=== PATIENT | female | born 1985 | race Caucasian/White ===

== ENCOUNTER 2016-07-08 13:59 | Emergency (ER) | payer SELFPAY ==
[~2016-07-08] VITALS: Ht 154.9 cm; Wt 54.0 kg
[~2016-07-08 13:59] MED LIST: ONDA1TAB16 PO; TRAM50 PO
[2016-07-08 14:04] VITALS: BP 124/63; PULSE 65; RESP 15; TEMP 98.3; O2SAT 96
[2016-07-08 14:55] LABS: BLOOD, URINE NEG (NEG); GLUCOSE,URINE NEG (NEG); KETONE, URINE TRACE mg/dL (NEG); NITRITE,URINE NEG (NEG)
[2016-07-08 15:02] LABS: METHOD OF COLLECTION CLEAN CATCH
[2016-07-08 15:03] LABS: COMMENT (UR) CULT NOT INDICATED; CULTURE IF INDICATED CULT NOT INDICATED; MUCUS URINE OCC /lpf (OCC); RBC, URINE 0-3 /hpf (0-3); SQUAMOUS EPITHELIAL CELL URINE 0-5 /hpf (0-5); URINE COLOR YELLOW (YELLW/STRAW); WBC, URINE 0-2 /hpf (0-5)
[2016-07-08] MEDS ORDERED: SODIUM CHLOR 0.9% 1000 ML INJ 1,000 ML IV SCH (15:34)
--- NOTE | 2016-07-08 15:38 | PD ---
HPI Chief Complaint: GI Complaint Time Seen by Provider: 15:34 Travel History International Travel<30 days: No Contact w/Intl Traveler<30days: No Traveled to known affect area: No History of Present Illness HPI Patient presents with intermittent nausea and vomiting over last several months. Reports onset yesterday with poor fluid intake. Denies any blood per emesis. She does have some acid brash. Reports feeling full of gas. Reports diffuse abdominal tenderness. Reports loose stools without blood for several days. Denies . No new rashes. PFSH Past Medical History Medical History: Denies Significant Hx Cardiovascular Problems: Yes (pt states she has a low heart rate) Diminished Hearing: No Influenza Vaccination: No ?: Unknown LMP: 2 WEEKS : 4 Para: 3 Past Surgical History Appendectomy: Yes (AGE 13) Social History Alcohol Use: Yes (occ) Tobacco Use: Yes (1 ppd) Substance Use: No Allergies-Medications (Allergen,Severity, Reaction): Coded Allergies: Penicillin (Verified Adverse Reaction, Intermediate, SWELLING, 07/08/16) Reported Meds & Prescriptions Reported Meds & Active Scripts Active Review of Systems General / Constitutional: No: Fever Eyes: No: Visual changes HENT: No: Headaches Cardiovascular: No: Chest Pain or Discomfort Respiratory: No: Shortness of Breath Gastrointestinal: Positive: Nausea, Vomiting, Diarrhea, Abdominal Pain Genitourinary: No: Dysuria Musculoskeletal: No: Pain Skin: No Rash Neurologic: No: Weakness Psychiatric: No: Depression Endocrine: No: Polydipsia Hematologic/Lymphatic: No: Easy Bruising Physical Exam Narrative GENERAL: Well-nourished, well-developed patient. SKIN: Focused skin assessment warm/dry. HEAD: Normocephalic. EYES: No scleral icterus. No injection or drainage. NECK: Supple, trachea midline. No JVD or lymphadenopathy. CARDIOVASCULAR: Regular rate and rhythm without murmurs, gallops, or rubs. RESPIRATORY: Breath sounds equal bilaterally. No accessory muscle use. GASTROINTESTINAL: Abdomen soft, diffusely tender primarily in the left lower quadrant, nondistended. MUSCULOSKELETAL: No cyanosis, or edema. BACK: Nontender without obvious deformity. No CVA tenderness. Data Data Last Documented VS Vital Signs Date Time Temp Pulse Resp B/P Pulse Ox O2 Delivery O2 Flow Rate FiO2 07/08/16 14:04 98.3 65 15 124/63 96 Orders Urinalysis - C+S If Indicated (07/08/16 14:48) Ed Urine Pregnancytest Poc (07/08/16 14:48) Complete Blood Count With Diff (07/08/16 15:30) Comprehensive Metabolic Panel (07/08/16 15:30) Iv Access Insert/Monitor (07/08/16 15:30) Lipase (07/08/16 15:30) Lipase (07/08/16 15:34) Lactic Acid (07/08/16 15:34) Ct Abd/Pel W Iv Contrast(Rout) (07/08/16 15:34) Ecg Monitoring (07/08/16 15:34) Oximetry (07/08/16 15:34) Ondansetron Inj (Zofran Inj) (07/08/16 15:45) Pantoprazole Inj (Protonix Inj) (07/08/16 15:45) Sodium Chlor 0.9% 1000 Ml Inj (Ns 1000 M (07/08/16 15:34) Sodium Chloride 0.9% Flush (Ns Flush) (07/08/16 15:45) Famotidine Inj (Pepcid Inj) (07/08/16 15:45) Dicyclomine Inj (Bentyl Inj) (07/08/16 15:45) Ketorolac Inj (Toradol Inj) (07/08/16 15:45) Labs Laboratory Tests Test 07/08/16 07/08/16 14:50 15:45 Urine Collection Type CLEAN CATCH Urine Color YELLOW Urine Turbidity CLEAR Urine pH 7.0 Urine Specific [place] 1.018 Urine Protein TRACE mg/dL Urine Glucose (UA) NEG mg/dL Urine Ketones TRACE mg/dL Urine Occult Blood NEG Urine Nitrite NEG Urine Bilirubin NEG Urine Leukocyte Esterase NEG Urine RBC 0-3 /hpf Urine WBC 0-2 /hpf Urine Squamous Epithelial 0-5 /hpf Cells Urine Mucus OCC /lpf Microscopic Urinalysis Comment CULT NOT INDICATED Urine Collection Time 14:50 White Blood Count 7.3 TH/MM3 Red Blood Count 4.24 MIL/MM3 Hemoglobin 13.1 GM/DL Hematocrit 39.4 % Mean Corpuscular Volume 93.0 FL Mean Corpuscular Hemoglobin 30.9 PG Mean Corpuscular Hemoglobin 33.2 % Concent Red Cell Distribution Width 13.3 % Platelet Count 137 TH/MM3 Mean Platelet Volume 10.0 FL Neutrophils (%) (Auto) 75.0 % Lymphocytes (%) (Auto) 16.4 % Monocytes (%) (Auto) 5.8 % Eosinophils (%) (Auto) 0.4 % Basophils (%) (Auto) 2.4 % Neutrophils # (Auto) 5.5 TH/MM3 Lymphocytes # (Auto) 1.2 TH/MM3 Monocytes # (Auto) 0.4 TH/MM3 Eosinophils # (Auto) 0.0 TH/MM3 Basophils # (Auto) 0.2 TH/MM3 CBC Comment DIFF FINAL Differential Comment MDM Medical Decision Making Medical Screen Exam Complete: Yes Emergency Medical Condition: Yes Differential Diagnosis Gastroenteritis, diverticulitis, colitis, small bowel obstruction Narrative Course Assessment and plan discussed with patient at bedside. Physician Communication Physician Communication Case discussed and care transferred to Topher Schwartz MD Jul 08, 2016 15:38
[2016-07-08] MEDS ORDERED: DICYCLOMINE HCL 20 MG/2 ML VIAL IM ONE (15:45)
[2016-07-08] MEDS ORDERED: KETOROLAC TROMETHAMINE 30 MG/ML (IVP) VIAL IVP ONE (15:45)
[2016-07-08] MEDS ORDERED: ONDANSETRON HCL 4 MG/2 ML VIAL IVP ONE (15:45)
[2016-07-08] MEDS ORDERED: SODIUM CHLORIDE 0.9% FLUSH 10 ML FLUSH IV FLUSH PRN (15:45)
[2016-07-08] MEDS ORDERED: PANTOPRAZOLE SODIUM 40 MG VIAL IVP ONE (15:45)
[2016-07-08] MEDS ORDERED: FAMOTIDINE 20 MG/2 ML VIAL IV PUSH ONE (15:45)
[2016-07-08 15:55] LABS: AUTOMATED NEUTROPHIL # 5.5 TH/MM3 (1.8-7.7); BASOPHIL # 0.2 TH/MM3 (0-0.2); BASOPHIL % 2.4 % (0.0-2.0); EOSINOPHIL % 0.4 % (0.0-4.0); HEMATOCRIT 39.4 % (35.0-46.0); HEMO FLAGS DIFF FINAL; LYMPH % 16.4 % (9.0-44.0); LYMPHOCYTE # 1.2 TH/MM3 (1.0-4.8); MEAN CORPUSCULAR HEMOGLOBIN 30.9 PG (27.0-34.0); MEAN CORPUSCULAR HGB CONC 33.2 % (32.0-36.0); MONO % 5.8 % (0.0-8.0); PLATELET COUNT 137 TH/MM3 (150-450); RED BLOOD COUNT 4.24 MIL/MM3 (4.00-5.30); RED CELL DISTRIBUTION WIDTH 13.3 % (11.6-17.2); WHITE BLOOD COUNT 7.3 TH/MM3 (4.0-11.0)
[2016-07-08 16:00] VITALS: BP 105/71; PULSE 88; RESP 18; O2SAT 97
[2016-07-08 16:05] LABS: CHLORIDE 110 MEQ/L (98-107); SODIUM (NA) 141 MEQ/L (136-145)
[2016-07-08 16:07] LABS: POTASSIUM 4.8 MEQ/L (3.5-5.1)
[2016-07-08 16:09] LABS: ANION GAP 6 MEQ/L (5-15); BICARBONATE 24.7 MEQ/L (21.0-32.0)
[2016-07-08 16:10] LABS: BLOOD UREA NITROGEN 11 MG/DL (7-18)
[2016-07-08 16:12] LABS: ALT (GPT) 14 U/L (10-53); AST (GOT) 30 U/L (15-37); GLOMERULAR FILTRATION RATE 103 ML/MIN (>89)
[2016-07-08 16:14] LABS: TOTAL BILIRUBIN ADULT 0.5 MG/DL (0.2-1.0)
[2016-07-08 16:15] LABS: ALKALINE PHOSPHATASE 58 U/L (45-117)
[2016-07-08] MEDS ORDERED: IOHEXOL 350 MG/ML 10 ML VIAL (for RAD DIAG) IV ONE (16:24)
--- NOTE | 2016-07-08 16:32 | PD ---
Data Data Last Documented VS Vital Signs Date Time Temp Pulse Resp B/P Pulse Ox O2 Delivery O2 Flow Rate FiO2 07/08/16 16:35 18 07/08/16 16:00 88 105/71 97 Room Air 07/08/16 14:04 98.3 Orders Urinalysis - C+S If Indicated (07/08/16 14:48) Ed Urine Pregnancytest Poc (07/08/16 14:48) Complete Blood Count With Diff (07/08/16 15:30) Comprehensive Metabolic Panel (07/08/16 15:30) Iv Access Insert/Monitor (07/08/16 15:30) Lipase (07/08/16 15:30) Lipase (07/08/16 15:34) Lactic Acid (07/08/16 15:34) Ct Abd/Pel W Iv Contrast(Rout) (07/08/16 15:34) Ecg Monitoring (07/08/16 15:34) Oximetry (07/08/16 15:34) Ondansetron Inj (Zofran Inj) (07/08/16 15:45) Pantoprazole Inj (Protonix Inj) (07/08/16 15:45) Sodium Chlor 0.9% 1000 Ml Inj (Ns 1000 M (07/08/16 15:34) Sodium Chloride 0.9% Flush (Ns Flush) (07/08/16 15:45) Famotidine Inj (Pepcid Inj) (07/08/16 15:45) Dicyclomine Inj (Bentyl Inj) (07/08/16 15:45) Ketorolac Inj (Toradol Inj) (07/08/16 15:45) Iohexol 350 Inj (Omnipaque 350 Inj) (07/08/16 16:24) Labs Laboratory Tests Test 07/08/16 07/08/16 14:50 15:45 Urine Collection Type CLEAN CATCH Urine Color YELLOW Urine Turbidity CLEAR Urine pH 7.0 Urine Specific [place] 1.018 Urine Protein TRACE mg/dL Urine Glucose (UA) NEG mg/dL Urine Ketones TRACE mg/dL Urine Occult Blood NEG Urine Nitrite NEG Urine Bilirubin NEG Urine Leukocyte Esterase NEG Urine RBC 0-3 /hpf Urine WBC 0-2 /hpf Urine Squamous Epithelial 0-5 /hpf Cells Urine Mucus OCC /lpf Microscopic Urinalysis Comment CULT NOT INDICATED Urine Collection Time 14:50 White Blood Count 7.3 TH/MM3 Red Blood Count 4.24 MIL/MM3 Hemoglobin 13.1 GM/DL Hematocrit 39.4 % Mean Corpuscular Volume 93.0 FL Mean Corpuscular Hemoglobin 30.9 PG Mean Corpuscular Hemoglobin 33.2 % Concent Red Cell Distribution Width 13.3 % Platelet Count 137 TH/MM3 Mean Platelet Volume 10.0 FL Neutrophils (%) (Auto) 75.0 % Lymphocytes (%) (Auto) 16.4 % Monocytes (%) (Auto) 5.8 % Eosinophils (%) (Auto) 0.4 % Basophils (%) (Auto) 2.4 % Neutrophils # (Auto) 5.5 TH/MM3 Lymphocytes # (Auto) 1.2 TH/MM3 Monocytes # (Auto) 0.4 TH/MM3 Eosinophils # (Auto) 0.0 TH/MM3 Basophils # (Auto) 0.2 TH/MM3 CBC Comment DIFF FINAL Differential Comment Sodium Level 141 MEQ/L Potassium Level 4.8 MEQ/L Chloride Level 110 MEQ/L Carbon Dioxide Level 24.7 MEQ/L Anion Gap 6 MEQ/L Blood Urea Nitrogen 11 MG/DL Creatinine 0.66 MG/DL Estimat Glomerular Filtration 103 ML/MIN Rate Random Glucose 96 MG/DL Lactic Acid Level 0.8 mmol/L Calcium Level 8.6 MG/DL Total Bilirubin 0.5 MG/DL Aspartate Amino Transf 30 U/L (AST/SGOT) Alanine Aminotransferase 14 U/L (ALT/SGPT) Alkaline Phosphatase 58 U/L Total Protein 7.2 GM/DL Albumin 3.5 GM/DL Lipase 63 U/L [facility] Supervised Visit with DONALD: No Narrative Course So 31 year-old woman who presents to the emergency department complaining of intermittent nausea vomiting for the past several months of abdominal pain. Today with worsening pain, some loose stools, and ongoing vomiting. Initially seen by Dr. Elizabeth, and signed out to me to follow-up on the results of diagnostic testing. Studies show: CBC is unremarkable. Platelet counts a little bit low 137. Not elevated lipase is not elevated Lactate is normal UA is unremarkable. CT abdomen and pelvis:small amount of free fluid in the right dependent pelvis. Mild fatty changes of the liver. Similar to prior CT in 2016. FINAL: 30 year-old woman intermittent nausea and vomiting. States that she has episode several times a month punctuated by symptom-free intervals. The episodes consist of pain and vomiting. She takes NSAIDs almost daily for her bad teeth. She drinks alcohol frequently but not daily. Labs and imaging are unremarkable. At this point we'll, likely etiology seems to be gastritis although her temperature and symptoms are much more periumbilical and epigastric. Nonetheless we'll recommend ranitidine, avoiding NSAIDs, and outpatient follow-up. Diagnosis Primary Impression: Abdominal pain Additional Impression: Nausea & vomiting Additional Instruction: Avoid NSAIDs such as ibuprofen or Aleve. Take ranitidine as prescribed. Use Bentyl as needed for abdominal cramping. Return to the emergency department for any new or worsening symptoms. Med/Other Pt SpecificInfo: Prescription(s) given Scripts Dicyclomine (Bentyl)10 Mg Cap10 Mg PO TID PRN (ABDOMINAL CRAMPING) #15 CAP Ref 0 Prov:Jericho Martinez MD 07/08/16 Ranitidine 150 Mg [id number] Mg PO BID #60 CAP Prov:Jericho Martinez MD 07/08/16 Jericho Martinez MD Jul 08, 2016 16:32
[2016-07-08 16:35] VITALS: RESP 18
--- NOTE | 2016-07-08 16:59 | RADHPO ---
EXAM DATE/TIME: 07/08/2016 16:06 [place] COMPARISON: CT ABDOMEN & PELVIS W CONTRAST, October 09, 2015, 10:41. INDICATIONS : Patient has had nausea and vomiting for past 2 days. IV CONTRAST: 96 cc Omnipaque 350 (iohexol) IV ORAL CONTRAST: No oral contrast ingested. RADIATION DOSE: 6.39 CTDIvol (mGy) MEDICAL HISTORY : Low heart rate SURGICAL HISTORY : Appendectomy. ENCOUNTER: Initial ACUITY: 2 days PAIN SCALE: 7/10 LOCATION: TECHNIQUE: Volumetric scanning of the abdomen and pelvis was performed. Using automated exposure control and ad justment of the mA and/or kV according to patient size, radiation dose was kept as low as reasonably achievable to obtain optimal diagnostic quality images. FINDINGS: LOWER LUNGS: The visualized lower lungs are clear. LIVER: Homogeneous density without lesion. Minimal diffuse fatty change. There is no dilation of the bilia ry tree. No calcified gallstones. SPLEEN: Normal size without lesion. PANCREAS: Within normal limits. KIDNEYS: Normal in size and shape. There is no mass, stone or hydronephrosis. ADRENAL GLANDS: Within normal limits. VASCULAR: There is no aortic aneurysm. BOWEL/MESENTERY: The stomach, small bowel, and colon demonstrate no acute abnormality. There is no free intraperitone al air or fluid. ABDOMINAL WALL: Within normal limits. RETROPERITONEUM: There is no lymphadenopathy. BLADDER: No wall thickening or mass. REPRODUCTIVE: The uterus is anteverted. There is a moderate amount of free fluid in the right dependent pelvis deniz suring 2 cm in thickness. INGUINAL: There is no lymphadenopathy or hernia. MUSCULOSKELETAL: Within normal limits for patient age. CONCLUSION: 1. Small amount of free fluid in the right dependent pelvis. 2. Mild fatty change of the liver, similar to prior CT in 2016 Maximo Mccloud MD on July 08, 2016 at 16:52 Board Certified Radiologist. This report was verified electronically.
[2016-07-08] MEDS ORDERED: DICY10 PO (17:22)
[2016-07-08] MEDS ORDERED: RANI150C PO (17:22)
[2016-07-08 17:43] VITALS: BP 111/70
== END 2016-07-08 17:44 | disposition home or self-care (01) ==
LOC: PHED 13:59
DX: R11.2 Nausea with vomiting, unspecified (principal); R10.9 Unspecified abdominal pain; F17.210 Nicotine dependence, cigarettes, uncomplicated
CPT/HCPCS: 74177; 80053; 81001; 83605; 83690; 84703; 85025; 96361; 96372; 96374; 96375; 99285; C9113; J0500; J1885; J2405; J7030; Q9967

== ENCOUNTER 2016-10-16 12:17 | Emergency (ER) | payer SELFPAY ==
[~2016-10-16] VITALS: Ht 157.5 cm; Wt 47.9 kg
[~2016-10-16 12:17] MED LIST changes: +DICY10 PO; -ONDA1TAB16 PO; +RANI150C PO; -TRAM50 PO
[2016-10-16 13:48] VITALS: BP 141/70; PULSE 48; RESP 16; TEMP 97.4; O2SAT 97
[2016-10-16 16:36] VITALS: BP 139/72; PULSE 46; RESP 20; TEMP 98.1; O2SAT 100
== END 2016-10-16 17:49 | disposition left against medical advice (07) ==
LOC: PHED 12:17
DX: Z53.9 Procedure and treatment not carried out, unspecified reason (principal)
CPT/HCPCS: 99281

== ENCOUNTER 2018-01-15 10:42 | Observation (INO) ==
[2018-01-15] MEDS ORDERED: Sod Chloride 0.9% Inj 1,000 ML IV.SIG ONE (11:15)
--- NOTE | 2018-01-15 11:19 | ED ---
HPI General Chief complaint: Weakness Stated complaint: Poss Sepsis Time Seen by Provider: 01/15/18 11:04 History of Present Illness HPI narrative: 32-year-old female with a history of IV drug use is brought to the emergency department by EMS for evaluation of body aches, nausea, vomiting, diarrhea and abdominal pain. The patient states that she has had body aches and weakness for the past 3 months. Patient states that one month ago she was admitted to [facility] for sepsis and endocarditis, per the patient she was admitted for only 3 days and then discharged without any IV antibiotics. She states she has not used IV drugs in the last month. She states she does have a history of heroin and cocaine abuse. She states that yesterday she started having nausea, vomiting and diarrhea and has not been able food or fluids which is why she called the ambulance today. She is also complaining of abdominal pain. Denies any fever, chills, chest pain, shortness of breath, syncope, swelling of the extremities. She does state she feels lightheaded and weak. No other complaints. Related Data Home Medications Medication Instructions Recorded Confirmed No Known Home Medications 01/15/18 01/15/18 Allergies Allergy/AdvReac Type Severity Reaction Status Date / Time penicillin G AdvReac Intermediate SWELLING Verified 01/15/18 10:47 Review of Systems ROS: all other systems reviewed are negative [facility] Medical History Medical History H/O sepsis (Acute) Surgical History Surgical History Hx of appendectomy (Acute) Social History Social History Substance History: Active Abuse Second Hand Smoke Exposure: Yes Smoking Status: Current every day smoker Tobacco Type: Cigarettes How Often Do You Have a Drink Containing Alcohol: Never Recent Travel in [email or web address] within the Last 8 Weeks: No Recent Out of Country Travel within the Last 8 Weeks: No Substance Abuse Detail Other: Substance Use Type Other:: IV Substance Use Status: Active Route Used Substance Abuse: Intravenously Reason for Use: Get High Immunization History Tetanus Immunization: Unable to Assess Exam Narrative Exam Narrative: GENERAL: Well-nourished and well-developed pleasant patient in no acute distress who is nontoxic appearing. SKIN: Warm and dry. Arms with track garcia noted and scarring from previous injection sites. No erythema or warmth. HEAD: Normocephalic and atraumatic. EYES: No injection, drainage, or hyphema noted. PERRLA. EOMI. ENT: No nasal drainage noted. Oropharynx is clear. NECK: Supple and the trachea is midline. CARDIOVASCULAR: Regular rate and rhythm. RESPIRATORY: Breath sounds are equal bilaterally with no accessory muscle use, wheezing, rhonchi, or crackles. GASTROINTESTINAL: Generalized tenderness to palpation. Abdomen is soft and nondistended. MUSCULOSKELETAL: No obvious deformities, swelling, cyanosis, or ecchymosis is present throughout the upper and lower extremities. Patient has full range of motion without any signs of neurovascular compromise. Distal pulses are 2+ throughout. NEUROLOGICAL: Drowsy but awake and oriented. Normal speech and gait. Cranial nerves are grossly intact. Course Initial Documented Vital Signs Temperature 98.2 F 01/15/18 10:47 Pulse Rate 46 L 01/15/18 10:47 Respiratory Rate 14 01/15/18 10:47 Blood Pressure 142/85 H 01/15/18 10:47 Pulse Oximetry 99 01/15/18 10:47 Last Documented Vital Signs Temperature 98.2 F 01/15/18 10:47 Pulse Rate 42 L 01/15/18 15:19 Respiratory Rate 17 01/15/18 15:19 Blood Pressure 143/81 H 01/15/18 15:19 Pulse Oximetry 96 01/15/18 15:19 Medical Decision Making DONALD Attestation DONALD supervised visit: Yes Attestation: I, Dr. Elias, have reviewed the advance practice practitioner's documentation and am in agreement, met with the patient face to face, made the diagnosis, and the medical decision making was done by me. *My assessment and Findings: Weakness with subjective fevers and chills. Patient was admitted [address] [facility]. She states she was in the hospital for 3 days and they discharged her. She denies any antibiotic use. She does report that she has had endocarditis. She states she last used IV drugs 1 month ago however appears lethargic. [facility] Narrative Medical decision making narrative: 32-year-old female is brought to the emergency department by EMS for evaluation of possible sepsis. Patient is afebrile. She is bradycardic with a heart rate of 46 bpm. Otherwise vital signs are unremarkable. IV access is obtained, labs have been drawn and sent. Patient is placed on cardiac telemetry and pulse oximetry monitoring. EKG shows sinus bradycardia with a ventricular rate of 46 bpm, no acute ST elevations or depressions. Patient administered IV fluids and Zofran. CT of the abdomen and pelvis has been ordered and is pending since patient has abdominal tenderness, vomiting and diarrhea. Will request records from [facility] from patient's recent hospitalization. CBC shows slightly decreased white count of 3.9, otherwise unremarkable. CMP is unremarkable. Lactic acid is within normal limits. Troponin is less than 0.02. Lipase is within normal limits. Urinalysis shows 30 protein, 80 ketones, small occult blood, rare bacteria and few mucus. Chest x-ray is negative. Influenza swab is negative. CT of the abdomen and pelvis with IV contrast is unremarkable. Records were received from [facility] which shows the patient had an admission 10/07/17 through 10/09/17 for sepsis with positive blood cultures showing staph aureus. Per the documentation from those records the patient left AGAINST MEDICAL ADVICE. The records show that the patient had a chest CT suspicious findings of septic emboli and she was undergoing workup for possible endocarditis however this was never diagnosed as the patient left AGAINST MEDICAL ADVICE prior to further workup. Reviewed the blood culture results which show susceptibility to all antibiotics except penicillin. Also reviewed transthoracic echocardiogram which was negative for vegetation however AVERY was not performed prior to patient leaving. Patient administered vancomycin 1 g IV. Patient reassessed and she is still quite lethargic and unable to ambulate safely on her own. She is high risk for bacteremia and endocarditis. I discussed the case with my attending physician Dr. Elias and we agree the patient should be observed here in the hospital. I spoke with Dr. Dominguez [facility] who accepts patient under observation. Medical Screen Exam Complete: Yes Emergency Medical Condition: Yes Differential Diagnosis Differential Diagnosis: Sepsis versus endocarditis versus dehydration versus electrolyte abnormality Lab Data Result diagrams: 01/15/18 11:36 01/15/18 11:36 POC Results POC Urine Results Negative Lab Results 01/15/18 01/15/18 01/15/18 Range/Units 11:36 11:36 11:36 WBC 3.9 L (4.0-11.0) th/mm3 RBC 4.57 (4.00-5.30) mil/mm3 Hgb 13.4 (11.6-15.3) gm/dL Hct 37.9 (35.0-46.0) % MCV 82.9 (80.0-100.0) fL MCH 29.3 (27.0-34.0) pg MCHC 35.3 (32.0-36.0) % RDW 16.1 (11.6-17.2) % Plt Count 250 (150-450) th/mm3 MPV 9.1 (7.0-11.0) fL Neut % (Auto) 65.5 (16.0-70.0) % Lymph % (Auto) 27.4 (9.0-44.0) % [place] % (Auto) 5.5 (0.0-8.0) % Eos % (Auto) 0.3 (0.0-4.0) % Baso % (Auto) 1.3 (0.0-2.0) % Neut # (Auto) 2.6 (1.8-7.7) th/mm3 Lymph # (Auto) 1.1 (1.0-4.8) th/mm3 [place] # (Auto) 0.2 (0.0-0.9) th/mm3 Eos # (Auto) 0.0 (0.0-0.4) th/mm3 Baso # (Auto) 0.0 (0.0-0.2) th/mm3 WBC Differential . Differential Comment Auto diff final Sodium 136 (136-145) meq/L Potassium 3.7 (3.5-5.1) meq/L Chloride 101 (98-107) meq/L Carbon Dioxide 23.5 (21.0-32.0) meq/L Anion Gap 12 (5-15) meq/L BUN 16 (7-18) mg/dL Creatinine 0.87 (0.50-1.00) mg/dL Estimated GFR 75 L (>89) mL/min Random Glucose 76 (74-106) mg/dL Lactic Acid 1.0 (0.4-2.0) mmol/L Calcium 9.1 (8.5-10.1) mg/dL Magnesium 2.2 (1.5-2.5) mg/dL Total Bilirubin 0.6 (0.2-1.0) mg/dL AST 17 (15-37) U/L ALT 16 (10-53) U/L Alkaline Phosphatase 100 (45-117) U/L Total Creatine Kinase (26-192) U/L Troponin I Less than 0.02 L (0.02-0.05) ng/mL Total Protein 8.9 H (6.4-8.2) g/dL Albumin 3.7 (3.4-5.0) g/dL Lipase (73-393) U/L Urine Color (Yellw/Straw) Urine Clarity (Clear) Urine pH (5.0-8.5) Ur Specific [place] (1.002-1.035) Urine Protein (Neg-Trace) mg/dL Urine Glucose (UA) (Negative) mg/dL Urine Ketones (Negative) mg/dL Urine Occult Blood (Negative) Urine Nitrate (Negative) Urine Bilirubin (Negative) Urine Urobilinogen (Less than 2) mg/dL Ur Leukocyte Esterase (Negative) Urine RBC (0-3) /hpf Urine WBC (0-5) /hpf Ur Squamous Epith Cells (0-5) /hpf Urine Bacteria (None) /hpf Urine Mucus (Occasional) /lpf Micro UA Comment Ur Microscopic Review Urine Culture Comments 01/15/18 01/15/18 01/15/18 Range/Units 11:36 11:36 11:50 WBC (4.0-11.0) th/mm3 RBC (4.00-5.30) mil/mm3 Hgb (11.6-15.3) gm/dL Hct (35.0-46.0) % MCV (80.0-100.0) fL MCH (27.0-34.0) pg MCHC (32.0-36.0) % RDW (11.6-17.2) % Plt Count (150-450) th/mm3 MPV (7.0-11.0) fL Neut % (Auto) (16.0-70.0) % Lymph % (Auto) (9.0-44.0) % [place] % (Auto) (0.0-8.0) % Eos % (Auto) (0.0-4.0) % Baso % (Auto) (0.0-2.0) % Neut # (Auto) (1.8-7.7) th/mm3 Lymph # (Auto) (1.0-4.8) th/mm3 [place] # (Auto) (0.0-0.9) th/mm3 Eos # (Auto) (0.0-0.4) th/mm3 Baso # (Auto) (0.0-0.2) th/mm3 WBC Differential Differential Comment Sodium (136-145) meq/L Potassium (3.5-5.1) meq/L Chloride (98-107) meq/L Carbon Dioxide (21.0-32.0) meq/L Anion Gap (5-15) meq/L BUN (7-18) mg/dL Creatinine (0.50-1.00) mg/dL Estimated GFR (>89) mL/min Random Glucose (74-106) mg/dL Lactic Acid (0.4-2.0) mmol/L Calcium (8.5-10.1) mg/dL Magnesium (1.5-2.5) mg/dL Total Bilirubin (0.2-1.0) mg/dL AST (15-37) U/L ALT (10-53) U/L Alkaline Phosphatase (45-117) U/L Total Creatine Kinase 35 (26-192) U/L Troponin I (0.02-0.05) ng/mL Total Protein (6.4-8.2) g/dL Albumin (3.4-5.0) g/dL Lipase 53 L (73-393) U/L Urine Color Yellow (Yellw/Straw) Urine Clarity Hazy H (Clear) Urine pH 5.0 (5.0-8.5) Ur Specific [place] 1.021 (1.002-1.035) Urine Protein 30 H (Neg-Trace) mg/dL Urine Glucose (UA) Negative (Negative) mg/dL Urine Ketones 80 or greater H (Negative) mg/dL Urine Occult Blood Small H (Negative) Urine Nitrate Negative (Negative) Urine Bilirubin Negative (Negative) Urine Urobilinogen Less than 2 (Less than 2) mg/dL Ur Leukocyte Esterase Negative (Negative) Urine RBC 2 (0-3) /hpf Urine WBC 2 (0-5) /hpf Ur Squamous Epith Cells <1 (0-5) /hpf Urine Bacteria Rare H (None) /hpf Urine Mucus Few H (Occasional) /lpf Micro UA Comment Cath-culture ind Ur Microscopic Review Not Reportable Urine Culture Comments Cath-cult indicated Imaging Data Radiologist's impression: Abdomen/Pelvis CT 01/15/18 11:15 CONCLUSION: 1. Grossly unremarkable bowel gas pattern. The study was performed without oral contrast limiting the sensitivity. 2. The gallbladder is decompressed but otherwise unremarkable. Chest X-Ray 01/15/18 11:15 CONCLUSION: No acute cardiopulmonary disease. There is no evidence of pneumonia. Discharge Plan Discharge Order Discharge Orders: ED Use Only Admit Order (Routine); Ordered 01/15/18 Ordered By: Gaby Hollis Physicians Team ED Provider: Rom Elias ED Midlevel Provider: Gaby Hollis Primary Care Provider: Primary Care Trish Rico Rxs /Orders / Referrals /Forms Prescriptions: No Action No Known Home Medications RF: 0 Discharge Interventions Interventions: Vital Signs Last Done: 01/15/18 15:19 Status ED Status: With Doctor
[2018-01-15 11:58] LABS: Baso % (Auto) 1.3 % (0.0-2.0); Eos % (Auto) 0.3 % (0.0-4.0); Hematocrit 37.9 % (35.0-46.0); Hemoglobin 13.4 gm/dL (11.6-15.3); Lymph # (Auto) 1.1 th/mm3 (1.0-4.8); Lymph % (Auto) 27.4 % (9.0-44.0); Mean Corpuscular HGB Conc 35.3 % (32.0-36.0); Mean Corpuscular Hemoglobin 29.3 pg (27.0-34.0); Mean Corpuscular Volume 82.9 fL (80.0-100.0); Mean Platelet Volume 9.1 fL (7.0-11.0); Mono # (Auto) 0.2 th/mm3 (0.0-0.9); Mono % (Auto) 5.5 % (0.0-8.0); Neut # (Auto) 2.6 th/mm3 (1.8-7.7); Neut % (Auto) 65.5 % (16.0-70.0); Platelet Count 250 th/mm3 (150-450); Red Blood Count 4.57 mil/mm3 (4.00-5.30); Red Cell Distribution Width 16.1 % (11.6-17.2); White Blood Count 3.9 th/mm3 (4.0-11.0)
[2018-01-15 12:23] LABS: Alanine Aminotransferase 16 U/L (10-53); Albumin 3.7 g/dL (3.4-5.0); Anion Gap 12 meq/L (5-15); Aspartate Aminotransferase 17 U/L (15-37); Blood Urea Nitrogen 16 mg/dL (7-18); Calcium 9.1 mg/dL (8.5-10.1); Carbon Dioxide 23.5 meq/L (21.0-32.0); Chloride 101 meq/L (98-107); Glomerular Filtration Rate 75 mL/min (>89); Glucose,Random 76 mg/dL (74-106); Magnesium 2.2 mg/dL (1.5-2.5); Potassium 3.7 meq/L (3.5-5.1); Sodium 136 meq/L (136-145)
[2018-01-15 12:24] LABS: Bacteria,Urine Rare /hpf; Bilirubin,Urine Negative (Negative); Clarity,Urine Hazy (Clear); Color,Urine Yellow (Yellw/Straw); Glucose,Urine (UA) Negative (Negative); Leukocyte Esterase,Urine Negative (Negative); Mucus,Urine Few /lpf (Occasional); Nitrite,Urine Negative (Negative); Specific Gravity,Urine 1.021 (1.002-1.035); Squamous Epithelial Cell,Urine <1 /hpf (0-5)
[2018-01-15 12:26] LABS: Alkaline Phosphatase 100 U/L (45-117); Total Protein 8.9 g/dL (6.4-8.2)
--- NOTE | 2018-01-15 13:07 | XR ---
EXAM DATE: 01/15/2018 12:51 PM EST AGE/SEX: 32 years / Female INDICATIONS: Cough. CLINICAL DATA: This is the patient's initial encounter. Patient reports that signs and symptoms have been present for 1 day and indicates a pain score of Nonresponsive. MEDICAL/SURGICAL HISTORY: . low heart rate. Appendectomy. COMPARISON: No prior exams available for comparison. FINDINGS: A single AP view of the chest demonstrates the lungs to be symmetrically aerated without evidence of mass, infiltrate or effusion. The cardiomediastinal contours are unremarkable. Osseous structures a re intact. CONCLUSION: No acute cardiopulmonary disease. There is no evidence of pneumonia. Electronically signed by: Anil Arriaga MD 01/15/2018 1:06 PM EST
[2018-01-15] MEDS ORDERED: Vancomycin Inj 1,000 MG in Sodium Chlor 0.9% Inj 250 ML IV.SIG ONE (13:33)
--- NOTE | 2018-01-15 14:20 | CT ---
EXAM DATE: 01/15/2018 1:58 PM EST AGE/SEX: 32 years / Female INDICATIONS: Diffuse abdominal pain. Nausea, vomiting and diarrhea. CLINICAL DATA: This is the patient's initial encounter. Patient reports that signs and symptoms have been present for 1 month and indicates a pain score of 10/10. MEDICAL/SURGICAL HISTORY: . Sepsis. Appendectomy. ORAL CONTRAST: No oral contrast ingested. RADIATION DOSE: 6.64 CTDI (mGy) COMPARISON: [facility], CT ABDOMEN & PELVIS W CONTRAST, 07/08/2016. . TECHNIQUE: Multiple contiguous axial images were obtained through the abdomen and pelvis following b olus infusion of 95 ml Omnipaque 350 (iohexol) nonionic water-soluble contrast as a single exam dos e. No oral contrast ingested. Using automated exposure control and adjustment of the mA and/or kV ac cording to patient size, radiation dose was kept as low as reasonably achievable to obtain optimal di agnostic quality images. DICOM format image data is available electronically for review and comparis on. FINDINGS: Lower Lungs: The visualized lower lungs are clear. Liver: The liver has a homogeneous density without space-occupying lesion. There is no dilation of th e biliary tree. The gallbladder is decompressed but otherwise unremarkable. Spleen: Homogeneous density without enlargement. Pancreas: Unremarkable without mass or calcification. Kidneys: Normal in size and shape. No evidence of mass or hydronephrosis. Adrenal Glands: Unremarkable. Aorta: The aorta and proximal iliac vessels are grossly unremarkable without aneurysmal dilation. Bowel/Mesentery: No oral contrast was given to the exam. The bowel loops are grossly unremarkable. Th e cecum and sigmoid colon have a normal configuration. Abdominal Wall: Intact. Retroperitoneum: No evidence of adenopathy in the retrocrural, para-aortic, or deep pelvic regions. Bladder: Contours are smooth. Reproductive Organs: No abnormal masses or calcifications seen. Inguinal: The inguinal region is unremarkable without evidence of adenopathy. Bony Structures: Unremarkable. CONCLUSION: 1. Grossly unremarkable bowel gas pattern. The study was performed without oral contrast limiting th e sensitivity. 2. The gallbladder is decompressed but otherwise unremarkable. Electronically signed by: Anil Arriaga MD 01/15/2018 2:18 PM EST
[2018-01-15] MEDS ORDERED: Acetaminophen 325 MG Tablet PO PRN (15:45)
[2018-01-15] MEDS ORDERED: Naloxone Inj 0.4 MG/ML Vial IV.PUSH PRN (15:45)
--- NOTE | 2018-01-15 16:00 | P.HP ---
History of Present Illness Primary Care Physician: No Primary Care Physician Chief Complaint: General weakness, intractable nausea and vomiting History of Present Illness: [id number] female with a past medical history of IVDU and states her last use of Heroine was few days ago, presents to the ED via EMS for evaluation of global weakness, intractable nausea and vomiting as well as diarrhea x 1-2 days duration. In the ED the patient was found to be bradycardic. Patient was admitted to [facility] on 10/07/17 through 10/09/17 for sepsis with positive blood cultures showing staph aureus, however the patient left AGAINST MEDICAL ADVICE before completing therapy. A transthoracic echocardiogram then was negative for vegetation however AVERY was not performed prior to the patient leaving AMA Review of Systems All other systems reviewed negative except as stated in HPI [facility] - History History Provided By: Patient - Medical History Medical History: Medical History (Last Updated 01/15/18 @ 10:56 by Merle Herr RN) H/O sepsis - Surgical History Surgical History: Surgical History (Last Updated 01/15/18 @ 10:56 by Merle Herr RN) Hx of appendectomy - Family History Family History: Family History (Last Updated 01/15/18 @ 16:10 by Simon Dominguez MD) Other Family history non-contributory - Tobacco History Second Hand Smoke Exposure: Yes Tobacco Use In Past 30 Days: Yes Smoking Status: Current every day smoker Tobacco Type: Cigarettes - Alcohol History How Often Do You Have a Drink Containing Alcohol: Never - Substance Use History Substance History: Active Abuse - Substance Use Type Other Type: IV Status: Active Route Used: Intravenously Reason for Use: Get High - Travel History Recent Travel in the [place] Within the Last 8 Weeks: No Recent Travel Out of the Country Within the Last 8 Weeks: No - Immunization History Tetanus Immunization: Unable to Assess Medications and Allergies Active Medications: Active Medications Acetaminophen (Tylenol) 650 mg PO Q4H PRN PRN Reason: Temp > 100.4 Al Hydroxide/Mg Hydroxide (Milk Of Magnesia Liq) 30 ml PO Q12H PRN PRN Reason: Mild Constipation Enoxaparin Sodium (Lovenox Inj) 40 mg SQ Q24H IRINA Sodium Chloride (Ns Inj) 1,000 mls @ 100 mls/hr IV.CONT .Q10H IRINA Ibuprofen (Motrin) 400 mg PO Q6HR PRN PRN Reason: PAIN SCALE 1 TO 2 Naloxone HCl (Narcan Inj) 0.4 mg IV.PUSH UNSCH PRN PRN Reason: SEE LABEL COMMENTS Ondansetron HCl (Zofran Inj) 4 mg IV.PUSH Q6H PRN PRN Reason: NAUSEA OR VOMITING Sodium Chloride (Ns Flush) 2 ml IV.FLUSH BID IRINA Sodium Chloride (Ns Flush) 2 ml IV.FLUSH PRN PRN PRN Reason: FLUSH AFTER USING IV ACCESS Allergies Allergy/AdvReac Type Severity Reaction Status Date / Time penicillin G AdvReac Intermediate SWELLING Verified 01/15/18 10:47 Home Medications Medication Instructions Recorded Confirmed Type No Known Home Medications 01/15/18 01/15/18 History Exam Vital signs: Vital Signs 01/15/18 10:47 01/15/18 11:15 01/15/18 14:08 Temperature 98.2 F Pulse Rate 46 L 45 L Respiratory Rate 14 17 Blood Pressure 142/85 H 144/77 H Pulse Oximetry 99 95 100 01/15/18 15:19 Temperature Pulse Rate 42 L Respiratory Rate 17 Blood Pressure 143/81 H Pulse Oximetry 96 Intake & Output 01/14/18 01/15/18 01/15/18 18:59 06:59 18:59 Intake Total 1000 / 1000 Balance 1000 / 1000 Weight 48.988 kg Intake: IV 1000 / 1000 NS Inj 1,000 ML @ Wide Open IV. 1000 / 1000 SIG BOLUS ONE Rx#:[id number] Narrative: GENERAL: NAD SKIN: Warm and dry.Arms with track garcia noted and scarring from previous injection sites HEAD: Atraumatic. Normocephalic. EYES: Pupils equal and round. No scleral icterus. No injection or drainage. ENT: No nasal bleeding or discharge. Mucous membranes pink and moist. NECK: Trachea midline. No JVD. CARDIOVASCULAR: Regular rate and rhythm. RESPIRATORY: No accessory muscle use. Clear to auscultation. Breath sounds equal bilaterally. GASTROINTESTINAL: Abdomen soft, non-tender, nondistended. Hepatic and splenic margins not palpable. MUSCULOSKELETAL: Extremities without clubbing, cyanosis, or edema. No obvious deformities. NEUROLOGICAL: Awake and alert. No obvious cranial nerve deficits. Motor grossly within normal limits. Five out of 5 muscle strength in the arms and legs. Normal speech. PSYCHIATRIC: Appropriate mood and affect; insight and judgment normal. Results - Labs CBC & Chem 7: 01/15/18 11:36 01/15/18 11:36 Labs: Laboratory Results - last 24 hr 01/15/18 01/15/18 01/15/18 11:36 11:36 11:36 WBC 3.9 L RBC 4.57 Hgb 13.4 Hct 37.9 MCV 82.9 MCH 29.3 MCHC 35.3 RDW 16.1 Plt Count 250 MPV 9.1 Neut % (Auto) 65.5 Lymph % (Auto) 27.4 [place] % (Auto) 5.5 Eos % (Auto) 0.3 Baso % (Auto) 1.3 Neut # (Auto) 2.6 Lymph # (Auto) 1.1 [place] # (Auto) 0.2 Eos # (Auto) 0.0 Baso # (Auto) 0.0 WBC Differential . Differential Comment Auto diff final Sodium 136 Potassium 3.7 Chloride 101 Carbon Dioxide 23.5 Anion Gap 12 BUN 16 Creatinine 0.87 Estimated GFR 75 L Random Glucose 76 Lactic Acid 1.0 Calcium 9.1 Magnesium 2.2 Total Bilirubin 0.6 AST 17 ALT 16 Alkaline Phosphatase 100 Total Creatine Kinase Troponin I Less than 0.02 L Total Protein 8.9 H Albumin 3.7 Lipase Urine Color Urine Clarity Urine pH Ur Specific [place] Urine Protein Urine Glucose (UA) Urine Ketones Urine Occult Blood Urine Nitrate Urine Bilirubin Urine Urobilinogen Ur Leukocyte Esterase Urine RBC Urine WBC Ur Squamous Epith Cells Urine Bacteria Urine Mucus Micro UA Comment Ur Microscopic Review Urine Culture Comments 01/15/18 01/15/18 01/15/18 11:36 11:36 11:50 WBC RBC Hgb Hct MCV MCH MCHC RDW Plt Count MPV Neut % (Auto) Lymph % (Auto) [place] % (Auto) Eos % (Auto) Baso % (Auto) Neut # (Auto) Lymph # (Auto) [place] # (Auto) Eos # (Auto) Baso # (Auto) WBC Differential Differential Comment Sodium Potassium Chloride Carbon Dioxide Anion Gap BUN Creatinine Estimated GFR Random Glucose Lactic Acid Calcium Magnesium Total Bilirubin AST ALT Alkaline Phosphatase Total Creatine Kinase 35 Troponin I Total Protein Albumin Lipase 53 L Urine Color Yellow Urine Clarity Hazy H Urine pH 5.0 Ur Specific [place] 1.021 Urine Protein 30 H Urine Glucose (UA) Negative Urine Ketones 80 or greater H Urine Occult Blood Small H Urine Nitrate Negative Urine Bilirubin Negative Urine Urobilinogen Less than 2 Ur Leukocyte Esterase Negative Urine RBC 2 Urine WBC 2 Ur Squamous Epith Cells <1 Urine Bacteria Rare H Urine Mucus Few H Micro UA Comment Cath-culture ind Ur Microscopic Review Not Reportable Urine Culture Comments Cath-cult indicated - Imaging Impressions Abdomen/Pelvis CT 01/15/18 11:15 CONCLUSION: 1. Grossly unremarkable bowel gas pattern. The study was performed without oral contrast limiting the sensitivity. 2. The gallbladder is decompressed but otherwise unremarkable. Chest X-Ray 01/15/18 11:15 CONCLUSION: No acute cardiopulmonary disease. There is no evidence of pneumonia. Caprini VTE Risk Assessment Caprini VTE Risk Assessment: No/Low Risk (score <= 1) Caprini Risk Assessment Model: Point Value = 1 Point Value = 2 Point Value = 3 Point Value = 5 Age 41-60 Minor surgery BMI > 25 kg/m2 Swollen legs Varicose veins or History of unexplained or recurrent spontaneous Oral contraceptives or hormone replacement Sepsis (< 1 month) Serious lung disease, including pneumonia (< 1 month) Abnormal pulmonary function Acute myocardial infarction Congestive heart failure (< 1 month) History of inflammatory bowel disease Medical patient at bed rest Age 61-74 Arthroscopic surgery Major open surgery (> 45 min) Laparoscopic surgery (> 45 min) Malignancy Confined to bed (> 72 hours) Immobilizing plaster cast Central venous access Age >= 75 History of VTE Family history of VTE Factor V Leiden Prothrombin [id number] Lupus anticoagulant Anticardiolipin antibodies Elevated serum homocysteine Heparin-induced thrombocytopenia Other congenital or acquired thrombophilia Stroke (< 1 month) Elective arthroplasty Hip, pelvis, or leg fracture Acute spinal cord injury (< 1 month) Prophylaxis Regimen: Total Risk Factor Score Risk Level Prophylaxis Regimen 0-1 Low Early ambulation 2 Moderate Order ONE of the following: *Sequential Compression Device (SCD) *Heparin 5000 units SQ BID 3-4 Higher Order ONE of the following medications: *Heparin 5000 units SQ TID *Enoxaparin/Lovenox 40 mg SQ daily (WT < 150 kg, CrCl > 30 mL/min) *Enoxaparin/Lovenox 30 mg SQ daily (WT < 150 kg, CrCl > 10-29 mL/min) *Enoxaparin/Lovenox 30 mg SQ BID (WT < 150 kg, CrCl > 30 mL/min) AND/OR *Sequential Compression Device (SCD) 5 or more Highest Order ONE of the following medications: *Heparin 5000 units SQ TID (Preferred with Epidurals) *Enoxaparin/Lovenox 40 mg SQ daily (WT < 150 kg, CrCl > 30 mL/min) *Enoxaparin/Lovenox 30 mg SQ daily (WT < 150 kg, CrCl > 10-29 mL/min) *Enoxaparin/Lovenox 30 mg SQ BID (WT < 150 kg, CrCl > 30 mL/min) AND *Sequential Compression Device (SCD) Assessment and Plan - Plan 32 years female with Global Weakness Multifactorial; patient with a h/o IVDU PT consult to treat and eval Abdominal pain; intractable N/V Abdominal/Pelvic CT noted and review by me without any abnormal findings patient with a h/o IVDU; questionable withdrawal? UDS pending Conservative treatment Bradycardia patient with a h/o IVDU; will check UDS Consider Limited 2D echo in the abscess of febrile episode, Leukocytosis History of Hep C Chronic, outpatient management IVDU -Continue use of Polysubstance abuse -Extensively counselled against -Will check UDS -NO current febrile episode , but will continue to monitor Blood culture. -Patient was admitted to [facility] on 10/07/17 through 10/09/17 for sepsis with positive blood cultures showing staph aureus, however the patient left AGAINST MEDICAL ADVICE before completing therapy. A transthoracic echocardiogram then was negative for vegetation however AVERY was not performed prior to the patient leaving [place]. DVT prophylaxis: Lovenox
[2018-01-15] MEDS: Sod Chloride 0.9% Inj 1,000 ML IV.CONT SCH (16:51)
[2018-01-15 19:41] LABS: Amphetamine Screen,Urine Neg (Neg); Barbiturate Screen,Urine Neg (Neg); Cannabinoid Screen,Urine Neg (Neg); Cocaine Screen,Urine Pos (Neg)
[2018-01-15 19:45] LABS: Opiate Screen,Urine Neg (Neg)
[2018-01-16] MEDS: Ibuprofen 400 MG Tablet PO PRN ×3 (01:06→20:30)
[2018-01-16] MEDS: Sod Chloride 0.9% Inj 1,000 ML IV.CONT SCH ×3 (03:17→23:26)
[2018-01-16 08:00] LABS: Baso % (Auto) 0.9 % (0.0-2.0); Eos % (Auto) 0.2 % (0.0-4.0); Hematocrit 34.7 % (35.0-46.0); Hemoglobin 12.3 gm/dL (11.6-15.3); Lymph # (Auto) 1.7 th/mm3 (1.0-4.8); Mean Corpuscular HGB Conc 35.3 % (32.0-36.0); Mean Corpuscular Hemoglobin 28.8 pg (27.0-34.0); Mean Corpuscular Volume 81.5 fL (80.0-100.0); Mean Platelet Volume 9.2 fL (7.0-11.0); Mono # (Auto) 0.4 th/mm3 (0.0-0.9); Mono % (Auto) 7.2 % (0.0-8.0); Neut # (Auto) 3.2 th/mm3 (1.8-7.7); Neut % (Auto) 59.7 % (16.0-70.0); Platelet Count 252 th/mm3 (150-450); Red Blood Count 4.26 mil/mm3 (4.00-5.30); Red Cell Distribution Width 16.1 % (11.6-17.2); White Blood Count 5.4 th/mm3 (4.0-11.0)
[2018-01-16 08:25] LABS: Alanine Aminotransferase 12 U/L (10-53); Albumin 3.5 g/dL (3.4-5.0); Anion Gap 9 meq/L (5-15); Aspartate Aminotransferase 10 U/L (15-37); Blood Urea Nitrogen 17 mg/dL (7-18); Calcium 8.8 mg/dL (8.5-10.1); Carbon Dioxide 25.6 meq/L (21.0-32.0); Chloride 104 meq/L (98-107); Glomerular Filtration Rate Greater Than 89 mL/min (>89); Glucose,Random 101 mg/dL (74-106); Potassium 3.3 meq/L (3.5-5.1); Sodium 139 meq/L (136-145)
[2018-01-16 08:27] LABS: Alkaline Phosphatase 89 U/L (45-117); Total Protein 8.1 g/dL (6.4-8.2)
[2018-01-16] MEDS: Enoxaparin Inj 40 MG/0.4 ML Syringe SQ SCH (08:39)
[2018-01-16] MEDS ORDERED: Enoxaparin Inj 40 MG/0.4 ML Syringe SQ SCH (09:00)
--- NOTE | 2018-01-16 11:41 | P.PN ---
Subjective Interval history: Follow-up for weakness, nausea/vomiting, diarrhea, IVDU with heroin. The patient reports still feeling very ill and weak with continued nausea/vomiting and diarrhea. She reports subjective fevers and chills. Denies any chest pain , shortness of breath, or cough. Denies any specific abdominal pains, just feels sore from vomiting. Denies any other medical complaints at this time. Physical Exam Vital signs: Vital Signs 01/15/18 14:08 01/15/18 15:19 01/15/18 16:50 Temperature Pulse Rate 45 L 42 L 45 L Respiratory Rate 17 17 18 Blood Pressure 144/77 H 143/81 H 152/100 H Pulse Oximetry 100 96 100 01/15/18 20:00 01/16/18 00:00 01/16/18 04:00 Temperature 98.6 F 98.3 F 98.3 F Pulse Rate 44 L 45 L 40 L Respiratory Rate 14 17 14 Blood Pressure 145/70 H 143/78 H 135/72 Pulse Oximetry 100 98 98 01/16/18 08:00 Temperature 98.2 F Pulse Rate 45 L Respiratory Rate 16 Blood Pressure 143/79 H Pulse Oximetry 98 Intake & Output 01/15/18 01/16/18 01/16/18 18:59 06:59 18:59 Intake Total 1490 / 1490 1000 / 1000 Balance 1490 / 1490 1000 / 1000 Weight 57.153 kg Intake: IV 1250 / 1250 1000 / 1000 NS Inj 1,000 ML @ 100 mls/hr IV 1000 / 1000 .CONT .Q10H IRINA Rx#:[id number] NS Inj 1,000 ML @ Wide Open IV. 1000 / 1000 SIG BOLUS ONE Rx#:[id number] Vancomycin Inj 1,000 MG In NS 250 / 250 Inj 250 ML @ 250 mls/hr IV.SIG ONCE ONE Rx#:[id number] Oral 240 / 240 Other: Weight On Admission 57 kg Narrative: GENERAL: Well-nourished, well-developed thin female patient in NAD. Drowsy, but easily awakens to voice. SKIN: Warm and dry. No rash. Puncture sites on extremities consistent with injection/track garcia. Face with scabs. HEENT: Normocephalic. Atraumatic. Pupils equal and round. Mucous membranes pink and moist. CARDIOVASCULAR: Regular rate and rhythm. No murmur appreciated. RESPIRATORY: No accessory muscle use. Clear to auscultation. Breath sounds equal bilaterally. GASTROINTESTINAL: Abdomen soft, non-tender, nondistended. Normoactive bowel sounds x4. MUSCULOSKELETAL: No obvious deformities. Extremities without clubbing, cyanosis , or edema. NEUROLOGICAL: Awake and alert. No obvious cranial nerve deficits. Moving all extremities spontaneously. Normal speech. PSYCHIATRIC: Appropriate mood and affect; insight and judgment normal. Results - Labs CBC & Chem 7: 01/16/18 07:25 01/16/18 07:25 Laboratory Results - last 24 hr 01/15/18 01/15/18 01/15/18 11:36 11:36 11:36 WBC 3.9 L RBC 4.57 Hgb 13.4 Hct 37.9 MCV 82.9 MCH 29.3 MCHC 35.3 RDW 16.1 Plt Count 250 MPV 9.1 Neut % (Auto) 65.5 Lymph % (Auto) 27.4 [place] % (Auto) 5.5 Eos % (Auto) 0.3 Baso % (Auto) 1.3 Neut # (Auto) 2.6 Lymph # (Auto) 1.1 [place] # (Auto) 0.2 Eos # (Auto) 0.0 Baso # (Auto) 0.0 WBC Differential . Differential Comment Auto diff final Sodium 136 Potassium 3.7 Chloride 101 Carbon Dioxide 23.5 Anion Gap 12 BUN 16 Creatinine 0.87 Estimated GFR 75 L Random Glucose 76 Lactic Acid 1.0 Calcium 9.1 Magnesium 2.2 Total Bilirubin 0.6 AST 17 ALT 16 Alkaline Phosphatase 100 Total Creatine Kinase Troponin I Less than 0.02 L Total Protein 8.9 H Albumin 3.7 Lipase Urine Color Urine Clarity Urine pH Ur Specific [place] Urine Protein Urine Glucose (UA) Urine Ketones Urine Occult Blood Urine Nitrate Urine Bilirubin Urine Urobilinogen Ur Leukocyte Esterase Urine RBC Urine WBC Ur Squamous Epith Cells Urine Bacteria Urine Mucus Micro UA Comment Ur Microscopic Review Urine Culture Comments Urine Opiates Screen Ur Barbiturates Screen Ur Amphetamines Screen U Benzodiazepines Scrn Urine Cocaine Screen U Cannabinoids Screen 01/15/18 01/15/18 01/15/18 11:36 11:36 11:50 WBC RBC Hgb Hct MCV MCH MCHC RDW Plt Count MPV Neut % (Auto) Lymph % (Auto) [place] % (Auto) Eos % (Auto) Baso % (Auto) Neut # (Auto) Lymph # (Auto) [place] # (Auto) Eos # (Auto) Baso # (Auto) WBC Differential Differential Comment Sodium Potassium Chloride Carbon Dioxide Anion Gap BUN Creatinine Estimated GFR Random Glucose Lactic Acid Calcium Magnesium Total Bilirubin AST ALT Alkaline Phosphatase Total Creatine Kinase 35 Troponin I Total Protein Albumin Lipase 53 L Urine Color Yellow Urine Clarity Hazy H Urine pH 5.0 Ur Specific [place] 1.021 Urine Protein 30 H Urine Glucose (UA) Negative Urine Ketones 80 or greater H Urine Occult Blood Small H Urine Nitrate Negative Urine Bilirubin Negative Urine Urobilinogen Less than 2 Ur Leukocyte Esterase Negative Urine RBC 2 Urine WBC 2 Ur Squamous Epith Cells <1 Urine Bacteria Rare H Urine Mucus Few H Micro UA Comment Cath-culture ind Ur Microscopic Review Not Reportable Urine Culture Comments Cath-cult indicated Urine Opiates Screen Ur Barbiturates Screen Ur Amphetamines Screen U Benzodiazepines Scrn Urine Cocaine Screen U Cannabinoids Screen 01/15/18 01/16/18 01/16/18 11:50 07:25 07:25 WBC 5.4 RBC 4.26 Hgb 12.3 Hct 34.7 L MCV 81.5 MCH 28.8 MCHC 35.3 RDW 16.1 Plt Count 252 MPV 9.2 Neut % (Auto) 59.7 Lymph % (Auto) 32.0 [place] % (Auto) 7.2 Eos % (Auto) 0.2 Baso % (Auto) 0.9 Neut # (Auto) 3.2 Lymph # (Auto) 1.7 [place] # (Auto) 0.4 Eos # (Auto) 0.0 Baso # (Auto) 0.0 WBC Differential . Differential Comment Auto diff final Sodium 139 Potassium 3.3 L Chloride 104 Carbon Dioxide 25.6 Anion Gap 9 BUN 17 Creatinine 0.70 Estimated GFR Greater than 89 Random Glucose 101 Lactic Acid Calcium 8.8 Magnesium Total Bilirubin 0.5 AST 10 L ALT 12 Alkaline Phosphatase 89 Total Creatine Kinase Troponin I Total Protein 8.1 D Albumin 3.5 Lipase Urine Color Urine Clarity Urine pH Ur Specific [place] Urine Protein Urine Glucose (UA) Urine Ketones Urine Occult Blood Urine Nitrate Urine Bilirubin Urine Urobilinogen Ur Leukocyte Esterase Urine RBC Urine WBC Ur Squamous Epith Cells Urine Bacteria Urine Mucus Micro UA Comment Ur Microscopic Review Urine Culture Comments Urine Opiates Screen Neg Ur Barbiturates Screen Neg Ur Amphetamines Screen Neg U Benzodiazepines Scrn Neg Urine Cocaine Screen Pos H U Cannabinoids Screen Neg Microbiology 01/15/18 11:36 Blood - Peripheral Aerobic Blood Culture - Preliminary No growth in 1 day 01/15/18 11:36 Blood - Peripheral Anaerobic Blood Culture - Preliminary No growth in 1 day 01/15/18 11:30 Blood - Peripheral Aerobic Blood Culture - Preliminary No growth in 1 day 01/15/18 11:30 Blood - Peripheral Anaerobic Blood Culture - Preliminary No growth in 1 day 01/15/18 11:58 Nasal Wash Influenza Types A,B Antigen - Final Negative for FLU A and B antigen Infection due to influenza A or B cannot be ruled out since the antigen present in the sample may be below the detection limit of the test. - Imaging Impressions Abdomen/Pelvis CT 01/15/18 11:15 CONCLUSION: 1. Grossly unremarkable bowel gas pattern. The study was performed without oral contrast limiting the sensitivity. 2. The gallbladder is decompressed but otherwise unremarkable. Chest X-Ray 01/15/18 11:15 CONCLUSION: No acute cardiopulmonary disease. There is no evidence of pneumonia. Assessment and Plan - Plan 32-year-old female with history of ongoing IVDU with heroin, hepatitis C, possible prior bacteremia with MSSA, presents with weakness, nausea/vomiting, abdominal pain, and diarrhea. Generalized weakness: Suspect multifactorial with ongoing drug abuse and dehydration with nausea/vomiting/diarrhea -Continue supportive treatment with IV fluid hydration -Consulted PT, no PT needed at discharge Intractable nausea/vomiting/diarrhea/abdominal pain: Possible gastroenteritis versus opiate withdrawal -CT abdomen pelvis reviewed, no acute findings -LFTs and lipase within normal limits -UA unremarkable -Supportive treatment with IVF, antiemetics as needed -Check stool studies -Diet as tolerated Recent bacteremia: Reportedly with positive blood cultures with staph aureus at [facility] in October 2017, however patient left AMA prior to completing therapy; also transthoracic echocardiogram was negative during that visit to -Repeat blood cultures pending -Hold off on antibiotics for now as patient is afebrile with no leukocytosis -Continue to monitor Hepatitis C: Chronic -LFTs within normal limits -Outpatient follow-up with GI IVDU with heroin: Acute -Counseled on cessation -Supportive treatment Bradycardia: Patient reports long history of bradycardia, heart rate has been in the 40s throughout admission -Check EKG -Monitor Hypokalemia: Potassium 3.3, likely secondary to vomiting -Give potassium replacement -Monitor electrolytes DVT prophylaxis: Lovenox sq
--- NOTE | 2018-01-16 13:28 | ECG ---
Date Performed: 01/16/2018 Time Performed: 11:22:32 PTAGE: 32 years EKG: SINUS BRADYCARDIA MODERATE T-WAVE ABNORMALITY, CONSIDER LATERAL ISCHEMIA MODERATE T-WAVE AB NORMALITY, CONSIDER INFERIOR ISCHEMIA ABNORMAL ECG PREVIOUS TRACING : 01/15/2018 11.22 Since the previous tracing, no significant change noted DOCTOR: Topher Mojica Interpretating Date/Time 01/16/2018 13:27:12
[2018-01-16] MEDS ORDERED: Potassium Chlor 20 mEq Premix 20 MEQ/100 ML PIGGYBACK IV.SIG ONE (15:00)
--- NOTE | 2018-01-16 23:12 | ECG ---
Date Performed: 01/15/2018 Time Performed: 11:22:44 PTAGE: 32 years EKG: SINUS BRADYCARDIA POSSIBLE LEFT ATRIAL ENLARGEMENT ST DEVIATION AND MODERATE T-WAVE ABNORMA LITY, CONSIDER INFERIOR ISCHEMIA ABNORMAL ECG PREVIOUS TRACING : 10/09/2015 09.50 Since the previous tracing, no significant change noted DOCTOR: Topher Mojica Interpretating Date/Time 01/16/2018 23:12:25
[2018-01-17] MEDS: Ibuprofen 400 MG Tablet PO PRN ×2 (03:34→23:35)
[2018-01-17 07:24] LABS: Baso % (Auto) 0.7 % (0.0-2.0); Eos % (Auto) 0.3 % (0.0-4.0); Hematocrit 37.2 % (35.0-46.0); Hemoglobin 12.5 gm/dL (11.6-15.3); Lymph # (Auto) 2.1 th/mm3 (1.0-4.8); Lymph % (Auto) 44.2 % (9.0-44.0); Mean Corpuscular HGB Conc 33.6 % (32.0-36.0); Mean Corpuscular Volume 83.3 fL (80.0-100.0); Mean Platelet Volume 8.8 fL (7.0-11.0); Mono # (Auto) 0.4 th/mm3 (0.0-0.9); Mono % (Auto) 9.2 % (0.0-8.0); Neut # (Auto) 2.1 th/mm3 (1.8-7.7); Neut % (Auto) 45.6 % (16.0-70.0); Platelet Count 241 th/mm3 (150-450); Red Blood Count 4.46 mil/mm3 (4.00-5.30); Red Cell Distribution Width 16.1 % (11.6-17.2); White Blood Count 4.7 th/mm3 (4.0-11.0)
[2018-01-17 07:54] LABS: Anion Gap 10 meq/L (5-15); Blood Urea Nitrogen 11 mg/dL (7-18); Calcium 8.7 mg/dL (8.5-10.1); Carbon Dioxide 23.5 meq/L (21.0-32.0); Chloride 104 meq/L (98-107); Glomerular Filtration Rate Greater Than 89 mL/min (>89); Glucose,Random 99 mg/dL (74-106); Magnesium 1.9 mg/dL (1.5-2.5); Potassium 3.5 meq/L (3.5-5.1); Sodium 137 meq/L (136-145)
--- NOTE | 2018-01-17 08:53 | P.PN ---
Subjective Interval history: Follow-up for weakness, bradycardia, opiate withdrawal, nausea/vomiting/ diarrhea. The patient is seen with her mother at bedside. Patient reports feeling very ill overnight. She reports continued intractable nausea and vomiting. She denies any specific abdominal pain. She reports continued intermittent nonbloody diarrhea. She is not tolerating oral intake. She denies any chest pain or shortness of breath. She reports continued generalized weakness and fatigue. She denies any other medical complaints at this time. Physical Exam Vital signs: Vital Signs 01/16/18 12:00 01/16/18 14:58 01/16/18 19:51 Temperature 98.0 F 98.3 F Pulse Rate 43 L 41 L Respiratory Rate 16 18 14 Blood Pressure 137/73 146/82 H Pulse Oximetry 100 100 01/16/18 20:00 01/16/18 23:45 01/17/18 04:00 Temperature 98.4 F 98.4 F Pulse Rate 41 L 38 L Respiratory Rate 16 16 14 Blood Pressure 144/79 H 149/83 H Pulse Oximetry 99 99 98 01/17/18 04:04 01/17/18 07:30 Temperature Pulse Rate 40 L Respiratory Rate 16 16 Blood Pressure 128/76 Pulse Oximetry 99 Intake & Output 01/16/18 01/17/18 01/17/18 18:59 06:59 18:59 Intake Total 1000 / 1000 1100 / 1100 Balance 1000 / 1000 1100 / 1100 Intake: IV 1000 / 1000 1100 / 1100 NS Inj 1,000 ML @ 100 mls/hr IV 1000 / 1000 1000 / 1000 .CONT .Q10H IRINA Rx#:[id number] Ofirmev Inj 1,000 mg In 100 ml 100 / 100 @ 400 mls/hr IV.SIG ONCE ONE Rx #:[id number] KCl 20 mEq Premix Inj 20 meq In 0 / 0 100 ml @ 50 mls/hr IV.SIG ONCE ONE Rx#:[id number] Narrative: GENERAL: Well-nourished, well-developed thin female patient in NAD. Drowsy, but easily awakens to voice. SKIN: Warm and dry. No rash. Puncture sites on extremities consistent with injection/track garcia. Face with scabs. HEENT: Normocephalic. Atraumatic. Pupils equal and round. Mucous membranes pink and moist. CARDIOVASCULAR: Bradycardic, regular rhythm. No murmur appreciated. RESPIRATORY: No accessory muscle use. Clear to auscultation. Breath sounds equal bilaterally. GASTROINTESTINAL: Abdomen soft, non-tender, nondistended. Normoactive bowel sounds x4. MUSCULOSKELETAL: No obvious deformities. Extremities without clubbing, cyanosis , or edema. NEUROLOGICAL: Awake and alert. No obvious cranial nerve deficits. Moving all extremities spontaneously. Normal speech. PSYCHIATRIC: Appropriate mood and affect; insight and judgment normal. Results - Labs CBC & Chem 7: 01/17/18 07:03 01/17/18 07:03 Laboratory Results - last 24 hr 01/17/18 01/17/18 07:03 07:03 WBC 4.7 RBC 4.46 Hgb 12.5 Hct 37.2 MCV 83.3 MCH 28.0 MCHC 33.6 RDW 16.1 Plt Count 241 MPV 8.8 Neut % (Auto) 45.6 Lymph % (Auto) 44.2 H [place] % (Auto) 9.2 H Eos % (Auto) 0.3 Baso % (Auto) 0.7 Neut # (Auto) 2.1 Lymph # (Auto) 2.1 [place] # (Auto) 0.4 Eos # (Auto) 0.0 Baso # (Auto) 0.0 WBC Differential . Differential Comment Auto diff final Sodium 137 Potassium 3.5 Chloride 104 Carbon Dioxide 23.5 Anion Gap 10 BUN 11 Creatinine 0.74 Estimated GFR Greater than 89 Random Glucose 99 Calcium 8.7 Magnesium 1.9 Microbiology 01/16/18 18:14 Stool Stool Occult Blood (ROSEMARY) - Final Hemoccult negative 01/15/18 11:50 Catheterized Urine Urine Culture - Preliminary No growth in 24 hours 01/15/18 11:36 Blood - Peripheral Aerobic Blood Culture - Preliminary No growth in 1 day 01/15/18 11:36 Blood - Peripheral Anaerobic Blood Culture - Preliminary No growth in 1 day 01/15/18 11:30 Blood - Peripheral Aerobic Blood Culture - Preliminary No growth in 1 day 01/15/18 11:30 Blood - Peripheral Anaerobic Blood Culture - Preliminary No growth in 1 day - Imaging Abdomen/Pelvis CT 01/15/18 11:15 CONCLUSION: 1. Grossly unremarkable bowel gas pattern. The study was performed without oral contrast limiting the sensitivity. 2. The gallbladder is decompressed but otherwise unremarkable. Chest X-Ray 01/15/18 11:15 CONCLUSION: No acute cardiopulmonary disease. There is no evidence of pneumonia. Assessment and Plan - Plan 32-year-old female with history of ongoing IVDU with heroin, hepatitis C, possible prior bacteremia with MSSA, presents with weakness, nausea/vomiting, abdominal pain, and diarrhea. Generalized weakness: Suspect multifactorial with ongoing drug abuse and dehydration with nausea/vomiting/diarrhea -Continue supportive treatment with IV fluid hydration -Consulted PT, no PT needed at discharge Intractable nausea/vomiting/diarrhea/abdominal pain: Possible gastroenteritis versus opiate withdrawal -CT abdomen pelvis reviewed, no acute findings -LFTs and lipase within normal limits -UA unremarkable -Supportive treatment with IVF, antiemetics as needed -Check stool studies, pending -Diet as tolerated Symptomatic bradycardia: Heart rate has been in the 30s40s throughout admission , patient reports history of bradycardia but never this low -EKG abnormal, shows sinus bradycardia with some lateral and inferior T wave abnormalities -Troponins negative x2 -Echocardiogram with EF 55-60%, trace MR, trace AR, trace TR -Monitor on telemetry -Heart rate continues to be very low, into the upper 30s, will consult cardiology today Recent bacteremia: Reportedly with positive blood cultures with staph aureus at [facility] in October 2017, however patient left AMA prior to completing therapy; also transthoracic echocardiogram was negative during that visit to -Repeat blood cultures with no growth today -Hold off on antibiotics for now as patient is afebrile with no leukocytosis -Continue to monitor Hepatitis C: Chronic -LFTs within normal limits -Outpatient follow-up with GI IVDU with heroin: Acute -Counseled on cessation -Supportive treatment Hypokalemia: Potassium 3.3, likely secondary to vomiting -Give potassium replacement -Monitor electrolytes DVT prophylaxis: Lovenox sq
[2018-01-17 09:14] LABS: Creatine Kinase 25 U/L (26-192)
[2018-01-17] MEDS: Sod Chloride 0.9% Inj 1,000 ML IV.CONT SCH ×2 (10:15→22:19)
[2018-01-17] MEDS: Enoxaparin Inj 40 MG/0.4 ML Syringe SQ SCH (10:15)
--- NOTE | 2018-01-17 13:03 | ECHRPT ---
Indication: Cardiomyopathy CONCLUSIONS The left ventricular systolic function is normal with an estimated ejection fraction in the range of 55-60%. Trace mitral valve regurgitation. Trace aortic valve regurgitation. There is trace tricuspid valve regurgitation. BP: / HR: Rhythm: MEASUREMENTS (Male / Female) Normal Values Technical Quality:Fair 2D ECHO LV Diastolic Diameter PLAX 3.7 cm 4.2 - 5.9 / 3.9 - 5.3 cm LV Systolic Diameter PLAX 2.7 cm IVS Diastolic Thickness 0.7 cm 0.6 - 1.0 / 0.6 - 0.9 cm LVPW Diastolic Thickness 0.8 cm 0.6 - 1.0 / 0.6 - 0.9 cm LV Relative Wall Thickness 0.4 RV Internal Dim ED PLAX 1.9 cm LVOT Diameter 1.8 cm Aortic Root Diameter 2.5 cm LA Systolic Diameter LX 2.4 cm 3.0 - 4.0 / 2.7 - 3.8 cm DOPPLER AV Peak Velocity 163.0 cm/s AV Peak Gradient 10.6 mmHg LVOT Peak Velocity 127.0 cm/s LVOT Peak Gradient 6.5 mmHg AV Area Cont Eq pk 2.0 cm Mitral E Point Velocity 113.0 cm/s Mitral A Point Velocity 92.3 cm/s Mitral E to A Ratio 1.2 LV E' Lateral Velocity 10.3 cm/s Mitral E to LV E' Lateral Ratio 11.0 LV E' Septal Velocity 8.6 cm/s Mitral E to LV E' Septal Ratio 13.2 TR Peak Velocity 262.0 cm/s TR Peak Gradient 27.5 mmHg Right Atrial Pressure 10.0 mmHg Pulmonary Artery Systolic Pressu 37.5 mmHg Right Ventricular Systolic Press 37.5 mmHg PV Peak Velocity 96.6 cm/s PV Peak Gradient 3.7 mmHg FINDINGS LEFT VENTRICLE Normal left ventricular size. Wall thickness is normal. The left ventricular systolic function is normal with an estimated ejection fraction in the range of 55-60%. No regional wall motion abnormalities are present. RIGHT VENTRICLE Normal right ventricular size and systolic function. LEFT ATRIUM The left atrial size is normal. RIGHT ATRIUM The right atrial size is normal. ATRIAL SEPTUM Normal atrial septal thickness without atrial level shunting by limited color doppler interrogation. AORTA The aortic root and proximal ascending aorta are normal in size on limited imaging. MITRAL VALVE Structurally normal mitral valve. No mitral valve stenosis. Trace mitral valve regurgitation. AORTIC VALVE Trileaflet aortic valve. Trace aortic valve regurgitation. No aortic valve stenosis. TRICUSPID VALVE Structurally normal tricuspid valve. There is trace tricuspid valve regurgitation. The estimated pulmonary arterial pressure is 38 mmHg. PULMONARY VALVE No pulmonary valve regurgitation or stenosis. VESSELS The inferior vena cava is normal in size. PERICARDIUM No pericardial effusion. Eitan Weaver DO (Electronically Signed) Final Date:17 January 2018 13:03
--- NOTE | 2018-01-17 18:54 | MB ---
cc: Eitan Weaver DO DATE: 01/17/2018 REASON FOR CONSULTATION: Previous bacteremia. HISTORY OF PRESENT ILLNESS: Rivka Merrill is a 32-year-old female who presented to [facility] Emergency Room due to global weakness, intractable nausea and vomiting. She previously was in [facility] 01/06/2018 through 01/08/2018 for sepsis with positive blood cultures showing Staphylococcus aureus, but at that time she left against medical advice. A transthoracic echo was done at the time and was negative for vegetation, but no further workup was done. Apparently, she got antibiotics for those days, but was not placed on antibiotics when she left due to her leaving AMA. She states that she has continued to use IV heroin and her last use was within the past week. She currently denies fevers or chills. PAST MEDICAL HISTORY: 1. Sepsis. 2. Intravenous drug abuse. PAST SURGICAL HISTORY: Appendectomy. ALLERGIES: PENICILLIN. MEDICATIONS: Denies. FAMILY HISTORY: Denies. SOCIAL HISTORY: The patient smokes cigarettes daily. Denies alcohol. She admits to using IV heroin. REVIEW OF SYSTEMS: Fourteen systems were reviewed including osteopathic. Pertinent positives and negatives as above, otherwise negative. PHYSICAL EXAMINATION: VITAL SIGNS: Temperature 98.0, heart rate 40, blood pressure 144/84, respirations 16, pulse oximetry 96% on room air. GENERAL: The patient appears in no acute distress, alert, awake and oriented x3. Overall, she is thin, cachectic. HEENT: Extraocular muscles intact. Mucous membranes moist. NECK: Supple. No JVD at 45 degrees. No carotid bruits heard bilaterally. Carotid upstroke is brisk in nature. HEART: Regular rate and rhythm. Positive first and second heart sounds with no new murmurs, gallops or rubs. LUNGS: Clear to auscultation bilaterally. No wheezes, rales or rhonchi. ABDOMEN: Soft, nontender, nondistended. No organomegaly noted. EXTREMITIES: Show no clubbing, cyanosis or edema. Track garcia and scarring noted from previous injection sites. NEUROLOGIC: No focal deficits. SKIN: Warm, dry and intact. OSTEOPATHIC: No kyphoscoliosis, lordosis or paraspinal tender points. LABORATORY DATA: Hemoglobin 12.5, hematocrit 37.2, platelets 241. Potassium 3.5, BUN 11, creatinine 0.74. Troponin negative x2. Electrocardiogram (01/16/2018 at 11:22): Sinus rhythm, nonspecific ST-T wave changes. Cannot rule out ischemia. IMPRESSION: 1. IV drug abuse. 2. Global weakness. 3. History of bacteremia. 4. Bradycardia. 5. Intractable nausea and vomiting. 6. Chronic hepatitis C. 7. Tobacco abuse. RECOMMENDATIONS: 1. Ms. Merrill presented with overall weakness and will be worked up from the primary team. 2. She is noted to be significantly bradycardic, but this may just be due to underlying vagal tone and being a young thin female. 3. Overall, I believe the patient should undergo a transesophageal echocardiogram to rule out endocarditis or possible abscess. Blood cultures may be negative due to her previous antibiotic use, as she had a short course of antibiotics without completing a full regimen. 4. She will be n.p.o. after midnight and this will be done tomorrow. Risks, benefits and alternatives were explained to her. She consented to such. 5. I spoke to her for greater than 3 minutes about tobacco cessation. Thank you for allowing me to see Rivka Merrill. If there are any questions, please do not hesitate to call. Eitan Weaver DO VGP/ct , 05:31 PM , 05:42 PM
[2018-01-18] MEDS: Sod Chloride 0.9% Inj 1,000 ML IV.CONT SCH ×4 (07:16→23:50)
--- NOTE | 2018-01-18 08:28 | P.PN ---
Subjective Interval history: Follow-up for weakness, bradycardia, opiate withdrawal, nausea/vomiting/ diarrhea. Patient reports continued generalized weakness with intermittent nausea/vomiting, however improving. She is currently n.p.o. for AVERY today, however she states she does have an appetite and would like to try eating after her procedure. She denies any diarrhea. Denies any abdominal pain. Denies any fevers or chills. Denies any chest pain or shortness of breath. She has no other medical complaints at this time. Physical Exam Vital signs: Vital Signs 01/17/18 12:06 01/17/18 15:32 01/17/18 19:45 Temperature 98.0 F 98.1 F Pulse Rate 40 L 38 L Respiratory Rate 16 16 Blood Pressure 144/84 H 164/89 H Pulse Oximetry 96 98 98 01/17/18 20:00 01/17/18 23:29 01/18/18 03:55 Temperature 98.8 F 98.5 F Pulse Rate 48 L 45 L 43 L Respiratory Rate 14 16 Blood Pressure 132/69 121/70 Pulse Oximetry 100 100 01/18/18 07:55 Temperature 99.2 F Pulse Rate 45 L Respiratory Rate 12 Blood Pressure 137/76 Pulse Oximetry 96 Intake & Output 01/17/18 01/18/18 01/18/18 18:59 06:59 18:59 Intake Total 1750 / 1750 1000 / 1000 Balance 1750 / 1750 1000 / 1000 Intake: IV 1100 / 1100 1000 / 1000 NS Inj 1,000 ML @ 100 mls/hr IV 1000 / 1000 1000 / 1000 .CONT .Q10H IRINA Rx#:[id number] Ofirmev Inj 1,000 mg In 100 ml 100 / 100 @ 400 mls/hr IV.SIG ONCE ONE Rx #:[id number] Oral 650 / 650 Other: # Voids 1 Narrative: GENERAL: Well-nourished, well-developed thin female patient in NAD. SKIN: Warm and dry. No rash. Puncture sites on extremities consistent with injection/track garcia. Face with scabs. HEENT: Normocephalic. Atraumatic. Pupils equal and round. Mucous membranes pink and moist. CARDIOVASCULAR: Bradycardic, regular rhythm. No murmur appreciated. RESPIRATORY: No accessory muscle use. Clear to auscultation. Breath sounds equal bilaterally. GASTROINTESTINAL: Abdomen soft, non-tender, nondistended. Normoactive bowel sounds x4. MUSCULOSKELETAL: No obvious deformities. Extremities without clubbing, cyanosis , or edema. NEUROLOGICAL: Awake and alert. No obvious cranial nerve deficits. Moving all extremities spontaneously. Normal speech. PSYCHIATRIC: Appropriate mood and affect; insight and judgment normal. Results - Labs CBC & Chem 7: 01/17/18 07:03 01/17/18 07:03 Laboratory Results - last 24 hr 01/17/18 07:03 Total Creatine Kinase 25 L Troponin I Less than 0.02 L Microbiology 01/16/18 18:14 Stool Enteric Pathogens (PCR) - Final 01/15/18 11:36 Blood - Peripheral Aerobic Blood Culture - Preliminary No growth in 2 days 01/15/18 11:36 Blood - Peripheral Anaerobic Blood Culture - Preliminary No growth in 2 days 01/15/18 11:30 Blood - Peripheral Aerobic Blood Culture - Preliminary No growth in 2 days 01/15/18 11:30 Blood - Peripheral Anaerobic Blood Culture - Preliminary No growth in 2 days 01/15/18 11:50 Catheterized Urine Urine Culture - Final No growth in 48 hours - Imaging Abdomen/Pelvis CT 01/15/18 11:15 CONCLUSION: 1. Grossly unremarkable bowel gas pattern. The study was performed without oral contrast limiting the sensitivity. 2. The gallbladder is decompressed but otherwise unremarkable. Chest X-Ray 01/15/18 11:15 CONCLUSION: No acute cardiopulmonary disease. There is no evidence of pneumonia. Assessment and Plan - Plan 32-year-old female with history of ongoing IVDU with heroin, hepatitis C, possible prior bacteremia with MSSA, presents with weakness, nausea/vomiting, abdominal pain, and diarrhea. Generalized weakness: Suspect multifactorial with ongoing drug abuse and dehydration with nausea/vomiting/diarrhea -Continue supportive treatment with IV fluid hydration -Consulted PT, no PT needed at discharge Intractable nausea/vomiting/diarrhea/abdominal pain: Possible gastroenteritis versus opiate withdrawal -CT abdomen pelvis reviewed, no acute findings -LFTs and lipase within normal limits -UA unremarkable -Supportive treatment with IVF, antiemetics as needed -Stool studies negative -Diet as tolerated Symptomatic bradycardia: Heart rate has been in the 30s40s throughout admission , patient reports history of bradycardia but never this low -EKG abnormal, shows sinus bradycardia with some lateral and inferior T wave abnormalities -Troponins negative x2 -Echocardiogram with EF 55-60%, trace MR, trace AR, trace TR -Monitor on telemetry -Heart rate continues to be very low, into the upper 30s, therefore consulted cardiology -Evaluated by Dr. Weaver, s/p AVERY negative for vegetation, no further work up, bradycardia unremarkable in thin young female Recent bacteremia: Reportedly with positive blood cultures with staph aureus at [facility] in October 2017, however patient left AMA prior to completing therapy; also transthoracic echocardiogram was negative during that visit to -Repeat blood cultures with no growth x3days -Hold off on antibiotics for now as patient is afebrile with no leukocytosis -Continue to monitor -S/p AVERY 01/18 negative for vegetation Hepatitis C: Chronic -LFTs within normal limits -Outpatient follow-up with GI IVDU with heroin: Acute -Counseled on cessation -Supportive treatment Hypokalemia: Potassium 3.3, likely secondary to vomiting -Give potassium replacement -Monitor electrolytes DVT prophylaxis: Lovenox sq Discharge Planning: The patient is overall improving, although reported continued vomiting last night. Attempting oral intake after AVERY today. If patient tolerates oral intake overnight, can likely discharge in the morning.
[2018-01-18] MEDS: Enoxaparin Inj 40 MG/0.4 ML Syringe SQ SCH (10:40)
[2018-01-18] MEDS ORDERED: Metoprolol Tartrate 25 MG Tablet PO ONE (12:15)
[2018-01-18] MEDS ORDERED: Chlorhexidine Gluconate 2% 1 Pack (2 Cloths) TOPICAL ONE (12:15)
[2018-01-18] MEDS ORDERED: Sodium Chlor 0.9% Inj 500 ML IV.CONT ONE (12:15)
--- NOTE | 2018-01-18 18:18 | P.PNCA ---
Subjective Interval history: No events overnight AVERY done today, negative for vegetation/abscess Medications and Allergies Active Medications: Active Medications Acetaminophen (Tylenol) 650 mg PO Q4H PRN PRN Reason: Temp > 100.4 Al Hydroxide/Mg Hydroxide (Milk Of Magnalexandria Liq) 30 ml PO Q12H PRN PRN Reason: Mild Constipation Cyclobenzaprine HCl (Flexeril) 5 mg PO Q8H PRN PRN Reason: MUSCLE SPASM Last Admin: 01/17/18 22:19 Dose: 5 mg Enoxaparin Sodium (Lovenox Inj) 40 mg SQ Q24H [facility] Last Admin: 01/18/18 10:40 Dose: 40 mg Sodium Chloride (Ns Inj) 1,000 mls @ 100 mls/hr IV.CONT .Q10H [facility] Last Admin: 01/18/18 17:10 Dose: Not Given Lactated Ringer's (Lr 1000 Ml Inj) 1,000 mls @ 30 mls/hr IV.CONT .Q24H ONE Stop: 01/19/18 12:14 Last Admin: 01/18/18 16:58 Dose: Not Given Sodium Chloride (Ns Inj) 500 mls @ 30 mls/hr IV.CONT .[id number] ONE Stop: 01/19/18 04:54 Last Admin: 01/18/18 16:57 Dose: Not Given Ibuprofen (Motrin) 400 mg PO Q6HR PRN PRN Reason: PAIN SCALE 1 TO 2 Last Admin: 01/17/18 23:35 Dose: 400 mg Miscellaneous (Pill Splitter) 1 each OTHER UNSCH [facility] Naloxone HCl (Narcan Inj) 0.4 mg IV.PUSH UNSCH PRN PRN Reason: SEE LABEL COMMENTS Nicotine (Habitrol 14 Mg Patch.24 Hr) 1 patch T-DERMAL DAILY [facility] Last Admin: 01/18/18 10:41 Dose: 1 patch Ondansetron HCl (Zofran Inj) 4 mg IV.PUSH Q6H PRN PRN Reason: NAUSEA OR VOMITING Last Admin: 01/17/18 05:17 Dose: 4 mg Patch Removal (Remove Old Patch) 1 each T-DERMAL DAILY [facility] Last Admin: 01/18/18 10:41 Dose: 1 each Prochlorperazine Edisylate (Compazine Inj) 5 mg IV.PUSH Q6H PRN PRN Reason: nausea/vomiting Last Admin: 01/18/18 14:46 Dose: 5 mg Sodium Chloride (Ns Flush) 2 ml IV.FLUSH BID IRINA Last Admin: 01/18/18 10:41 Dose: 2 ml Sodium Chloride (Ns Flush) 2 ml IV.FLUSH PRN PRN PRN Reason: FLUSH AFTER USING IV ACCESS Allergies Allergy/AdvReac Type Severity Reaction Status Date / Time penicillin G AdvReac Intermediate SWELLING Verified 01/15/18 10:47 Home Medications Medication Instructions Recorded Confirmed Type No Known Home Medications 01/15/18 01/15/18 History Physical Exam Vital signs: Vital Signs 01/17/18 19:45 01/17/18 20:00 01/17/18 23:29 Temperature 98.8 F 98.5 F Pulse Rate 48 L 45 L Respiratory Rate 14 16 Blood Pressure 132/69 121/70 Pulse Oximetry 98 100 100 01/18/18 03:55 01/18/18 07:35 01/18/18 07:55 Temperature 99.2 F Pulse Rate 43 L 40 L 45 L Respiratory Rate 12 Blood Pressure 137/76 Pulse Oximetry 96 01/18/18 11:19 01/18/18 16:00 01/18/18 17:34 Temperature 98.9 F 98.6 F Pulse Rate 45 L 50 L 50 L Respiratory Rate 12 16 Blood Pressure 134/83 126/71 Pulse Oximetry 97 98 Intake & Output 01/17/18 01/18/18 01/18/18 18:59 06:59 18:59 Intake Total 1750 / 1750 1000 / 1000 1100 / 1100 Balance 1750 / 1750 1000 / 1000 1100 / 1100 Intake: IV 1100 / 1100 1000 / 1000 1100 / 1100 NS Inj 1,000 ML @ 100 mls/hr IV 1000 / 1000 1000 / 1000 1000 / 1000 .CONT .Q10H [facility] Rx#:[id number] Ofirmev Inj 1,000 mg In 100 ml 100 / 100 100 / 100 @ 400 mls/hr IV.SIG ONCE ONE Rx #:[id number] Oral 650 / 650 Other: # Voids 1 Narrative: GENERAL: Well-nourished, well-developed thin female patient in NAD. SKIN: Warm and dry. No rash. Puncture sites on extremities consistent with injection/track garcia. Face with scabs. HEENT: Normocephalic. Atraumatic. Pupils equal and round. Mucous membranes pink and moist. CARDIOVASCULAR: Bradycardic, regular rhythm. No murmur appreciated. RESPIRATORY: No accessory muscle use. Clear to auscultation. Breath sounds equal bilaterally. GASTROINTESTINAL: Abdomen soft, non-tender, nondistended. Normoactive bowel sounds x4. MUSCULOSKELETAL: No obvious deformities. Extremities without clubbing, cyanosis , or edema. NEUROLOGICAL: Awake and alert. No obvious cranial nerve deficits. Moving all extremities spontaneously. Normal speech. PSYCHIATRIC: Appropriate mood and affect; insight and judgment normal. Results 01/17/18 07:03 01/17/18 07:03 Cardiac Enzymes 01/17/18 Range/Units 07:03 Troponin I Less than 0.02 L (0.02-0.05) ng/mL CBC 01/17/18 Range/Units 07:03 WBC 4.7 (4.0-11.0) th/mm3 RBC 4.46 (4.00-5.30) mil/mm3 Hgb 12.5 (11.6-15.3) gm/dL Hct 37.2 (35.0-46.0) % Plt Count 241 (150-450) th/mm3 Neut # (Auto) 2.1 (1.8-7.7) th/mm3 Lymph # (Auto) 2.1 (1.0-4.8) th/mm3 [place] # (Auto) 0.4 (0.0-0.9) th/mm3 Eos # (Auto) 0.0 (0.0-0.4) th/mm3 Baso # (Auto) 0.0 (0.0-0.2) th/mm3 Comprehensive Metabolic Panel 01/17/18 Range/Units 07:03 Sodium 137 (136-145) meq/L Potassium 3.5 (3.5-5.1) meq/L Chloride 104 (98-107) meq/L Carbon Dioxide 23.5 (21.0-32.0) meq/L BUN 11 (7-18) mg/dL Creatinine 0.74 (0.50-1.00) mg/dL Calcium 8.7 (8.5-10.1) mg/dL Intake and Output 01/18/18 01/18/18 01/18/18 06:59 14:59 22:59 Intake Total 1100 / 1100 Balance 1100 / 1100 Intake: IV 1100 / 1100 NS Inj 1,000 ML @ 100 mls/hr IV 1000 / 1000 .CONT .Q10H [facility] Rx#:[id number] Ofirmev Inj 1,000 mg In 100 ml 100 / 100 @ 400 mls/hr IV.SIG ONCE ONE Rx #:[id number] Assessment and Plan - Assessment (1) Bradycardia Code(s): R00.1 - Bradycardia, unspecified Status: Acute (2) Generalized weakness Code(s): R53.1 - Weakness Status: Acute (3) IVDU (intravenous drug user) Code(s): F19.90 - Other psychoactive substance use, unspecified, uncomplicated Status: Acute - Plan 1) IVDA AVERY negative for vegetation/abscess Mother attempted to find her help 2) Bradycardia Asymptomatic Most likely due to increased vagal tone, thin young female and poor oral intake Will check TSH for completeness Otherwise no further work up 3) EF normal by echo 4) No further work up from cardiology Will see PRN, call with questions
[2018-01-18 20:19] VITALS: BP 124/76; RESP 18
[2018-01-19 00:26] VITALS: PULSE 55; TEMP 97.6; O2SAT 99
--- NOTE | 2018-01-19 00:31 | ECHRPT ---
Indication: ENDOCARDITIS CONCLUSIONS The left ventricular systolic function is normal with an estimated ejection fraction in the range of 55-60%. Trace mitral valve regurgitation. There is trace tricuspid valve regurgitation. Trivial pulmonary valve regurgitation. No evidence of endocarditis/abscess. BP: / HR: Rhythm: Technical Quality:Good Medications Complications Proc. Components Anesthesia at the bedside for sedation FINDINGS LEFT VENTRICLE Normal left ventricular size. Wall thickness is normal. The left ventricular systolic function is normal with an estimated ejection fraction in the range of 55-60%. No regional wall motion abnormalities are present. RIGHT VENTRICLE Normal right ventricular size and systolic function. LEFT ATRIUM The left atrial size is normal. RIGHT ATRIUM The right atrial size is normal. ATRIAL APPENDAGES Normal left atrial appendage size with no evidence of thrombus formation. ATRIAL SEPTUM Normal atrial septal thickness without atrial level shunting by limited color doppler interrogation. AORTA Descending aorta with no evidence of dissection MITRAL VALVE Structurally normal mitral valve. Trace mitral valve regurgitation. No mitral valve stenosis. AORTIC VALVE Trileaflet aortic valve. No aortic valve stenosis or regurgitation. TRICUSPID VALVE Structurally normal tricuspid valve. There is trace tricuspid valve regurgitation. No tricuspid valv e stenosis. VESSELS The pulmonary valve is not well visualized. Trivial pulmonary valve regurgitation. Eitan Weaver DO (Electronically Signed) Final Date:19 January 2018 00:30
== END 2018-01-19 04:19 | disposition left against medical advice (07) ==
LOC: NEPC 10:42 → NEDA 10:42 → NEPHCDU 17:33
PROVIDERS: ADMIT Internal Medicine; ATTEND Internal Medicine